=== PATIENT | female | born 1985 | race Caucasian/White ===

== ENCOUNTER 2016-10-23 23:55 | Inpatient (IN) | payer MEDICAID ==
--- NOTE | ~2016-10-23 | FD ---
ADMIT: 10/24/2016 RM/LOC: 227 [facility] MR#: [id number] [id number] [facility] [address] [place], [place] [address] [facility] [address] [place] [address] Final Diagnosis SEX: F AGE: 31 : 1985 ADMISSION DATE: 10/24/2016 DISCHARGE DATE: 10/25/2016 FINAL DIAGNOSIS: Intrauterine at term. PROCEDURE: Spontaneous vaginal delivery. Ivette Beckett MD/ sandrine JOB #: [id number] CC: Javed Blue MD, Attending Physician Javed Blue MD, Family Physician
--- NOTE | ~2016-10-23 | HP ---
ADMIT: 10/24/2016 RM/LOC: 227 [facility] MR#: [id number] [id number] [place], [place] [address] JACOB TIERNEY [address] [place] [address] History and Physical SEX: F AGE: 31 : 1985 DATE OF SERVICE: HISTORY OF PRESENT ILLNESS: This is a 31-year-old G5, P4-0-0-4, who had presented to Labor and Delivery by squad with complaints of pelvic pain and contractions. Her has been complicated by late presentation to care. On presentation to Labor and Delivery, she was not noted to have any contractions and not being in active labor; however, she was found to have recurrent deep variable decelerations with suspected rupture of membranes at past 41 weeks. PAST MEDICAL HISTORY: None. PAST SURGICAL HISTORY: None. OBSTETRICS AND GYNECOLOGIC HISTORY: She has had 4 prior spontaneous vaginal deliveries. SOCIAL HISTORY: She is currently homeless. She is to [facility]. She speaks Argentine. No tobacco. No alcohol. No drug use. OBSTETRICS LABS: GBS is positive. HIV negative. Antibody screen negative. One hour glucose 98. Hepatitis B surface antigen was negative. RPR was nonreactive. Rubella antibody, she is immune. Blood type is O positive. Antibody screen negative. PHYSICAL EXAMINATION: VITAL SIGNS: Blood pressure is 130/69, pulse is 72, respirations 16, temperature is 98.1. She is 99% on room air. heart tones 130, moderate variability, positive accelerations, recurrent variable decelerations to the 60s with every contraction. Tocodynamometer shows contractions every 10 minutes. CERVICAL: Exam shows cervix is 4 cm, 75%, -2 station. GENERAL: Patient is in no acute distress. ADMIT: 10/24/2016 RM/LOC: 227 [facility] MR#: [id number] [address] [address] JACOB TIERNEY [address] [place] [address] History and Physical SEX: F AGE: 31 : 1985 HEART: Regular rate and rhythm. No murmurs, rubs, or gallops. LUNGS: Clear to auscultation bilaterally. ABDOMEN: Gravid. LOWER EXTREMITIES: No edema. ASSESSMENT AND PLAN: This is a 31-year-old, 5, para 4-0-0-4, who is presenting to Labor and Delivery with complaints of contractions, loss of fluid, and was noted to have recurrent variable decelerations, and is postdates. 1. We will admit patient for induction of labor with Pitocin. She is GBS positive, so we will initiate antibiotics for prophylaxis. 2. The patient is Rh positive and rubella immune. Joy Prabhakar MD/ fidelia JOB #: [id number] CC: Javed Blue, Attending Physician Javed Blue, Family Physician
[2016-10-26] MEDS ORDERED: TYLENOL #3 DPS1 TAB PO (14:58)
[2016-10-26] MEDS ORDERED: MOTRIN-DPS800 MG PO (14:58)
[2016-10-26] MEDS ORDERED: NIPPLECREAM TP (14:58)
--- NOTE | 2016-11-06 09:05 | OR ---
ADMIT: 10/24/2016 RM/LOC: 227 [facility] MR#: [id number] 26[address] [facility] [address] [place], [place] [address] JACOB TIERNEY [address] [place], [place] [id number] Operative/Delivery Room Report SEX: F AGE: 31 : 1985 SURGERY DATE: 10/24/2016 SURGEON: Joy Prabhakar MD DIAGNOSES: 1. Term intrauterine at 41 weeks and 2 days. 2. Postdates. 3. Recurrent deep variable decelerations. 4. Suspected spontaneous rupture of membranes. 5. Group B Streptococcus positive. POSTOPERATIVE DIAGNOSES: 1. Term intrauterine at 41 weeks and 2 days. 2. Postdates. 3. Recurrent deep variable decelerations. 4. Suspected spontaneous rupture of membranes. 5. Group B Streptococcus positive. PROCEDURE: Spontaneous vaginal delivery. ANESTHESIA: None. FINDINGS: Viable male infant, with scores of 8 and 9 and a weight of 3.64 kg, 7 pounds 15 ounces. Intact placenta with three-vessel cord and first- degree perineal laceration. INDICATIONS FOR PROCEDURE: This is a 31-year-old, G5, P 4-0-0-4, who presents to Labor and Delivery with complaints of contractions and possible rupture of membranes. The patient was noted to be 4 cm and having irregular contractions, not more frequent than every 10 minutes. She was also found to have recurrent deep variable decelerations with every contraction. Given postdates status and deep variable decelerations and suspected rupture of membranes, she was admitted for induction of labor. Pitocin was initiated and she rapidly progressed to complete. PROCEDURE IN DETAIL: The patient progressed to complete. She delivered over an intact perineum. Nuchal cord x2 was noted and reduced. This was handled ADMIT: 10/24/2016 RM/LOC: 227 [facility] MR#: [id number] [id number] [facility] [address] [place] [id number] JACOB TIERNEY [address] [place] [address] Operative/Delivery Room Report SEX: F AGE: 31 : 1985 by nursing staff. The placenta then delivered spontaneously intact. Small amount of trailing membranes were noted, but these were easily reduced with gentle traction with ring forceps. On exam of the perineum, there was a small first-degree laceration that was hemostatic and was not repaired. ANTIBIOTICS: 1 dose of penicillin for GBS prophylaxis. COMPLICATIONS: None. ANESTHESIA: None. DISPOSITION: Mom stable in delivery room, infant to nursery. Joy Prabhakar MD/ fidelia JOB #: [id number] CC: Javed Blue, Attending Physician Javed Blue, Family Physician
== END 2016-10-25 11:35 | disposition home or self-care (01) | DRG 775 ==
LOC: BC 23:55 → 2LDRP 23:55
PROC: 10E0XZZ Delivery of Products of Conception, External Approach (ICD-10-PCS; principal; 2016-10-24)
PROC: 3E033VJ Introduction of Other Hormone into Peripheral Vein, Percutaneous Approach (ICD-10-PCS; principal; 2016-10-24)
DX: O76 Abnormality in fetal heart rate and rhythm complicating labor and delivery (principal); O48.0 Post-term pregnancy; O99.824 Streptococcus B carrier state complicating childbirth; O69.81X0 Labor and delivery complicated by cord around neck, without compression, not applicable or unspecified; Z3A.41 41 weeks gestation of pregnancy; Z37.0 Single live birth

== ENCOUNTER 2016-10-28 19:08 | Emergency (ER) | payer MEDICAID ==
[~2016-10-28 19:08] MED LIST: MOTRIN-DPS800 MG PO; NIPPLECREAM TP; TYLENOL #3 DPS1 TAB PO
--- NOTE | 2016-11-08 07:17 | ER ---
ADMIT: 10/28/2016 RM/LOC: ER [facility] MR#: [id number] [id number] [facility] [address] [place], [place] [address] JACOB TIERNEY [address] [place] [address] Emergency Room Report SEX: F AGE: 31 : 1985 DATE: 10/28/2016 HISTORY OF PRESENT ILLNESS: This is a 31-year-old Somalian female, who delivered a baby 5 days ago via vaginal delivery on 10/24/2016. She is complaining now of both legs are swollen and some neck pain. She has no shortness of breath, no nausea, no vomiting. She denies getting an epidural shot at the time of delivery. She said it was a vaginal delivery that was totally natural. Her vitals; blood pressure 137/63 with a pulse of 83, respirations 16, temp is 97, and O2 sats are 100%. She is at this time. She has been taking ibuprofen and Tylenol #3 that was prescribed for her at the time of the delivery by Dr. Blue. PAST MEDICAL HISTORY: Negative. PHYSICAL EXAMINATION: GENERAL: Well-nourished, well-developed pleasant, alert, and oriented [place] female. She is oriented. Baby is with her. EXTREMITIES: With good pulses bilaterally, but 1+ edema bilaterally, right and left. She says she got pain from the thighs to the ankles bilaterally. SKIN: Good color and turgor. NECK: Supple. DIAGNOSTIC DATA: Ultrasound of bilateral legs to rule out DVT was done, both negative. I did not do any other labs. CLINICAL IMPRESSION: Bilateral leg edema and has ruled out deep venous thrombosis. Advised to elevate legs where compression stockings. Hydration. Follow up with Dr. Blue. COLIN Gonzales / Vincent Llanos MD / fidelia JOB #: [id number] CC: Vincent Llanos MD, Attending Physician Javed Blue MD, Family Physician
== END 2016-10-28 20:55 | disposition home or self-care (01) ==
LOC: ER 19:08
DX: R60.0 Localized edema (principal); Z79.899 Other long term (current) drug therapy